=== PATIENT | female | born 1970 | race Native Hawaiian/Other Pacific Islander ===

== ENCOUNTER 2018-04-25 16:33 | Outpatient (CLI) | payer OTHER | END 2018-04-25 20:10 | disposition home or self-care (01) | LOC: LAB 16:33 | DX: N39.0 Urinary tract infection, site not specified (principal) | CPT/HCPCS: 81000; 87088 ==

== ENCOUNTER 2020-02-28 09:51 | Outpatient (CLI) | payer OTHER | END 2020-02-28 20:02 | disposition home or self-care (01) | LOC: LAB 09:51 | PROVIDERS: ATTEND Internal Medicine | DX: Z11.59 Encounter for screening for other viral diseases (principal) | CPT/HCPCS: 87635; G2023; U0003 ==